=== PATIENT | female | born 1935 | race Asian ===

== ENCOUNTER → 2019-07-04 | Outpatient (CLI) | payer MEDICARE, MEDICAID ==
[~2019-07-04] MED LIST: ACHD5005 PO; ASPI81TA55 PO; MULT-178 PO
== END | disposition home or self-care (01) ==
LOC: PREOP 11:42
PROVIDERS: ATTEND Surgery
DX: Z01.818 Encounter for other preprocedural examination (principal)

== ENCOUNTER 2022-01-28 17:21 | Emergency (ER) | payer MEDICARE, MEDICAID ==
[~2022-01-28] VITALS: Ht 152 cm; Wt 58.9 kg
--- NOTE | 2022-01-28 17:42 | ED General ---
General Chief Complaint: General Problems/Pain Stated Complaint: WEAKNESS Source of Information: Patient, Family Exam Limitations: Language Barrier History of Present Illness Date Seen by Provider: Jan 28, 2022 Time Seen by Provider: 17:40 Initial Comments Patient is a 86-year-old female presents ED family for weakness. This occurred a few hours ago. She was taking the mail out to the mailbox when she returned and felt weak going up the steps and slightly fell down. She denies hitting her head, loss of consciousness, headache, dizziness. She states she felt like both of her legs were going to give out. That has improved. She has no current complaints. According to family when she walks she has slight tremoring. Similar episode about a year ago and blood sugar was over 300. She is a type II diabetic currently on metformin. No history of COPD, asthma, coronary artery disease. She was doing fine this morning according to family. Has been moving around the house without assistance. No issues or concerns with urination, cough, vomiting, diarrhea, headache, visual changes, unilateral muscle weakness or sensory changes. Family states she is at her current baseline Allergies and Home Medications Allergies Coded Allergies: Penicillins (Verified Allergy, Unknown, 07/04/19) Patient Home Medication List Home Medication List Reviewed: Yes Aspirin (Aspir-Low) 81 Mg Tablet.dr, 25 MG PO DAILY, (Reported) Entered as Reported by: NIMISHA KING on 07/05/19 1151 Hydrocodone Bit/Acetaminophen (Lortab 5 Mg Tablet) 1 Tab Tab, 1-2 TAB PO Q4-6HR PRN for PAIN-MODERATE Prescribed by: NIMISHA KING on 07/05/19 1612 Multivitamin (Multiple Vitamins) 1 Each Tablet, 1 EACH PO DAILY, (Reported) Entered as Reported by: NIMISHA KING on 07/05/19 1151 Review of Systems Review of Systems Constitutional: No chills, No diaphoresis, No malaise; weakness EENTM: No blurred vision, No double vision, No eye pain, No nose pain, No throat pain Respiratory: No cough, No short of breath Cardiovascular: No chest pain, No edema Gastrointestinal: No abdominal pain, No diarrhea, No nausea, No vomiting Genitourinary: No decreased output, No discharge Musculoskeletal: No back pain, No joint pain All Other Systems Reviewed Negative Unless Noted: Yes Past Cztmsjb-Aktoza-Fmaakh Hx Seasonal Allergies Seasonal Allergies: No Past Medical History Surgeries: Yes (bilat cataract approx 20 yrs ago) Respiratory: No Cardiac: No Neurological: No Genitourinary: No Gastrointestinal: No Musculoskeletal: No Endocrine: No HEENT: Yes (bilat cataract surgery approx 20yrs ago) Cataract Hearing Impairment: Denies Cancer: No Psychosocial: No Integumentary: No Blood Disorders: No Physical Exam Vital Signs Vital Signs - First Documented 01/28/22 17:25 Temp 36.6 Pulse 82 Resp 18 B/P (MAP) 178/67 (104) Pulse Ox 96 O2 Delivery Room Air Capillary Refill : Height, Weight, BMI Height: '" Weight: lbs. oz. kg; 22.92 BMI Method: General Appearance: No Apparent Distress, WD/WN Eyes: Bilateral Eye Normal Inspection, Bilateral Eye PERRL, Bilateral Eye EOMI HEENT: PERRL/EOMI, TMs Normal, Normal ENT Inspection Neck: Full Range of Motion, Normal Inspection, Non Tender, Supple Respiratory: Chest Non Tender, Lungs Clear, Normal Breath Sounds, No Accessory Muscle Use, No Respiratory Distress Cardiovascular: Regular Rate, Rhythm, No Edema, No Gallop, No JVD, No Murmur Gastrointestinal: Normal Bowel Sounds, No Organomegaly, No Pulsatile Mass, Non Tender, Soft Back: Normal Inspection Extremity: Normal Capillary Refill, Normal Inspection, Normal Range of Motion, Non Tender Neurologic/Psychiatric: Alert, Oriented x3, No Motor/Sensory Deficits, Normal Mood/Affect, web application dev specialist II-XII Norm as Tested Progress/Results/Core Measures Suspected Sepsis SIRS Temperature: Pulse: Respiratory Rate: Laboratory Tests 01/28/22 17:38: White Blood Count 5.1 Blood Pressure / Mean: Laboratory Tests 01/28/22 17:38: Creatinine 1.09, Platelet Count 277, Total Bilirubin 0.4 Results/Orders Lab Results Laboratory Tests Test 01/28/22 17:33 01/28/22 17:38 01/28/22 18:17 Range/Units Glucometer 204 H 70-110 MG/DL White Blood Count 5.1 4.3-11.0 10^3/uL Red Blood Count 3.54 L 3.80-5.11 10^6/uL Hemoglobin 11.5 11.5-16.0 g/dL Hematocrit 34 L 35-52 % Mean Corpuscular Volume 96 80-99 fL Mean Corpuscular Hemoglobin 33 25-34 pg Mean Corpuscular Hemoglobin Concent 34 32-36 g/dL Red Cell Distribution Width 12.7 10.0-14.5 % Platelet Count 277 130-400 10^3/uL Mean Platelet Volume 10.2 9.0-12.2 fL Immature Granulocyte % (Auto) 1 % Neutrophils (%) (Auto) 53 42-75 % Lymphocytes (%) (Auto) 33 12-44 % Monocytes (%) (Auto) 7 0-12 % Eosinophils (%) (Auto) 3 0-10 % Basophils (%) (Auto) 2 0-10 % Neutrophils # (Auto) 2.7 1.8-7.8 10^3/uL Lymphocytes # (Auto) 1.7 1.0-4.0 10^3/uL Monocytes # (Auto) 0.4 0.0-1.0 10^3/uL Eosinophils # (Auto) 0.2 0.0-0.3 10^3/uL Basophils # (Auto) 0.1 0.0-0.1 10^3/uL Immature Granulocyte # (Auto) 0.1 0.0-0.1 10^3/uL Sodium Level 138 135-145 MMOL/L Potassium Level 4.3 3.6-5.0 MMOL/L Chloride Level 105 98-107 MMOL/L Carbon Dioxide Level 22 21-32 MMOL/L Anion Gap 11 5-14 MMOL/L Blood Urea Nitrogen 29 H 7-18 MG/DL Creatinine 1.09 0.60-1.30 MG/DL Estimat Glomerular Filtration Rate 49 BUN/Creatinine Ratio 27 Glucose Level 209 H 70-105 MG/DL Calcium Level 9.4 8.5-10.1 MG/DL Corrected Calcium 9.7 8.5-10.1 MG/DL Magnesium Level 2.3 1.6-2.4 MG/DL Total Bilirubin 0.4 0.1-1.0 MG/DL Aspartate Amino Transf (AST/SGOT) 20 5-34 U/L Alanine Aminotransferase (ALT/SGPT) 15 0-55 U/L Alkaline Phosphatase 47 40-136 U/L Troponin I < 0.028 <0.028 NG/ML C-Reactive Protein High Sensitivity 0.20 0.00-0.50 MG/DL Total Protein 7.6 6.4-8.2 GM/DL Albumin 3.6 3.2-4.5 GM/DL Urine Color YELLOW Urine Clarity CLEAR Urine pH 6.0 5-9 Urine Specific [place] 1.020 1.016-1.022 Urine Protein 2+ H NEGATIVE Urine Glucose (UA) TRACE H NEGATIVE Urine Ketones NEGATIVE NEGATIVE Urine Nitrite NEGATIVE NEGATIVE Urine Bilirubin NEGATIVE NEGATIVE Urine Urobilinogen 0.2 < = 1.0 MG/DL Urine Leukocyte Esterase NEGATIVE NEGATIVE Urine RBC (Auto) TRACE-I H NEGATIVE Urine RBC RARE /HPF Urine WBC RARE /HPF Urine Squamous Epithelial Cells RARE /HPF Urine Crystals NONE /LPF Urine Bacteria TRACE /HPF Urine Casts PRESENT /LPF Urine Hyaline Casts 0-2 H /LPF Urine Mucus SMALL H /LPF Urine Culture Indicated NO My Orders Orders - NOAH TURNER Cbc With Automated Diff (01/28/22 17:38) Comprehensive Metabolic Panel (01/28/22 17:38) Ua Culture If Indicated (01/28/22 17:38) Magnesium (01/28/22 17:38) Ekg Tracing (01/28/22 17:38) Hs C Reactive Protein (01/28/22 17:38) Troponin I [place] (01/28/22 18:06) Vital Signs/I&O 01/28/22 01/28/22 01/28/22 01/28/22 17:25 18:25 18:39 18:58 Temp 36.6 Pulse 82 78 73 75 Resp 18 18 18 18 B/P (MAP) 178/67 (104) 205/80 195/78 195/78 Pulse Ox 96 95 96 95 O2 Delivery Room Air Room Air Room Air Room Air Capillary Refill : Point of Care Testing Finger Stick Blood Glucose: 304 Blood Glucose Action Taken: RN NOTIFIED ECG Comment Sinus rhythm, possible left atrial enlargement, 76 bpm, QRS duration 86 MS, QTc 401 MS Departure Communication (PCP) Episode of weakness today while going up the stairs. [place] like her legs were going to give out. She is currently asymptomatic on arrival. EKG without evidence of ST elevation or depression or arrhythmia. Normal troponin. Lab work was otherwise unremarkable besides elevated blood sugar 200. She is type II diabetic currently on metformin. Urinalysis without strong evidence of infection. Patient with a stable gait here. She has no current complaints. According to family similar type episode a year ago with elevated blood sugar. Continue monitoring blood sugar. Continue monitoring patient at home. Patient is at her current normal baseline according to family. Vital signs stable besides elevated blood pressure Of 178/67. Did increase slightly to 195/78. Family states that she is not currently on blood pressure medication. Did discuss starting a medication versus follow-up with her primary care physician. They would rather follow up outpatient with thalia pcp. She is currently asympto matic but did discuss with family complications secondary to sustain hypertension. They acknowledged. Discuss giving her a dose of iv hydrazine here but they want to wait. She has no headache, dizziness, visual changes, bruits. Outpatient follow-up with PCP in 2 to 3 days for reevaluation. Patient kidney function is normal. Recommending follow bp at home. Impression Primary Impression: Weakness Additional Impression: Elevated blood pressure reading Disposition: 01 HOME, SELF-CARE Condition: Stable Departure-Patient Inst. Decision time for Depature: 18:50 Referrals: KENNETH BLOUNT APRN (PCP) Primary Care Physician Patient Instructions: NOAH Mayen ED Jan 28, 2022 17:42
[2022-01-28 17:48] LABS: BASOPHILS # (AUTO) 0.1 10^3/uL (0.0-0.1); BASOPHILS % (AUTO) 2 % (0-10); EOSINOPHILS # (AUTO) 0.2 10^3/uL (0.0-0.3); EOSINOPHILS % (AUTO) 3 % (0-10); HEMATOCRIT 34 % (35-52); HEMOGLOBIN 11.5 g/dL (11.5-16.0); LYMPHOCYTES # (AUTO) 1.7 10^3/uL (1.0-4.0); LYMPHOCYTES % (AUTO) 33 % (12-44); MEAN CORPUSCULAR HEMOGLOBIN 33 pg (25-34); MEAN CORPUSCULAR HGB CONC 34 g/dL (32-36); MEAN CORPUSCULAR VOLUME 96 fL (80-99); MEAN PLATELET VOLUME 10.2 fL (9.0-12.2); MONOCYTES # (AUTO) 0.4 10^3/uL (0.0-1.0); MONOCYTES % (AUTO) 7 % (0-12); NEUTROPHILS # (AUTO) 2.7 10^3/uL (1.8-7.8); NEUTROPHILS % (AUTO) 53 % (42-75); PLATELET COUNT 277 10^3/uL (130-400); WHITE BLOOD COUNT 5.1 10^3/uL (4.3-11.0)
[2022-01-28 18:03] LABS: ALBUMIN 3.6 GM/DL (3.2-4.5); POTASSIUM 4.3 MMOL/L (3.6-5.0)
[2022-01-28 18:04] LABS: CALCIUM 9.4 MG/DL (8.5-10.1)
[2022-01-28 18:06] LABS: TOTAL PROTEIN 7.6 GM/DL (6.4-8.2)
[2022-01-28 18:07] LABS: BILIRUBIN,TOTAL 0.4 MG/DL (0.1-1.0)
[2022-01-28 18:09] LABS: CREATININE SERUM 1.09 MG/DL (0.60-1.30)
[2022-01-28 18:12] LABS: MAGNESIUM 2.3 MG/DL (1.6-2.4)
[2022-01-28 18:29] LABS: BILIRUBIN,URINE NEGATIVE (NEGATIVE); CLARITY,URINE CLEAR; COLOR,URINE YELLOW; GLUCOSE, URINE (UA) TRACE (NEGATIVE); KETONES,URINE NEGATIVE (NEGATIVE); LEUKOCYTE ESTERASE ,URINE NEGATIVE (NEGATIVE); NITRITE,URINE NEGATIVE (NEGATIVE); PROTEIN,URINE 2+ (NEGATIVE)
[2022-01-28 18:47] LABS: BACTERIA,URINE TRACE /HPF; HYALINE CASTS, URINE 0-2 /LPF; RBC,URINE RARE /HPF; SQUAMOUS EPITHELIAL CELL,UR RARE /HPF; WBC,URINE RARE /HPF
[2022-01-28 18:58] VITALS: BP 195/78
== END 2022-01-28 18:58 | disposition home or self-care (01) ==
LOC: EDUNIT# 17:21 → ER 17:23
DX: R03.0 Elevated blood-pressure reading, without diagnosis of hypertension (principal); R53.1 Weakness; E11.9 Type 2 diabetes mellitus without complications; Z79.84 Long term (current) use of oral hypoglycemic drugs
CPT/HCPCS: 36415; 80053; 81000; 82947; 83735; 84484; 85025; 86141; 93005